=== PATIENT | female | born 1955 | race Two or more races ===

== ENCOUNTER 2016-05-13 14:54 | Emergency (ER) | payer MEDICARE, BC ==
[2016-05-13 15:03] VITALS: BP 146/91
--- OUTSIDE RECORDS SUMMARY | 2016-05-13 15:48 | XMS REPORT | Continuity of Care Document ---
:1955 Author Organization [facility] ([facility]) Address [address] [place] [address] Phone [phone] Care Team Providers Name Role Phone Vikram Green Primary Care Provider [phone] Source Comments This disclosure is being made pursuant to the Care Everywhere program, applicable federal and state laws, and may not contain all informaitonavailable regarding this patient.[facility] ([facility]) Active Allergies and Adverse Reactions Allergen Noted Date Severity Reactions Comments Sulfadoxine Urticaria (Hives) Current Medications Prescription Sig. Disp. Refills Start Date End Date Status BUTALBITAL/ASPIRIN/CAFFEINE Take 1 Tab by Active (FIORINAL PO) mouth as needed. gabapentin (NEURONTIN) 600 Take 900 mg by Active mg tablet mouth 3 times daily. fexofenadine (JOYCE) 180 Take 180 mg by Active mg tablet mouth as needed. amitriptyline (ELAVIL) 50 mg Take 50 mg by Active tablet mouth at bedtime. hydrochlorothiazide Take 25 mg by Active (HYDRODIURIL) 25 mg tablet mouth daily. acyclovir (ZOVIRAX) 400 mg Take 400 mg by Active tablet mouth 2 times daily. lansoprazole (PREVACID) 30 Take 30 mg by Active mg capsule mouth daily. topiramate (TOPAMAX) 50 mg Take 50 mg by Active tablet mouth daily. topiramate (TOPAMAX) 100 mg Take 100 mg by Active tablet mouth at bedtime. zolpiDEM (AMBIEN) 10 mg Take 10 mg by Active tablet mouth at bedtime as needed. simvastatin (ZOCOR) 20 mg Take 20 mg by Active tablet mouth every evening. citalopram (CELEXA) 20 mg Take 20 mg by Active tablet mouth daily. tiZANidine (ZANAFLEX) 2 mg Take 1 Tab by 90 Tab 3 09/24/2009 Active tablet mouth. Take 1 tab at night for one week. Then take twice a day for one week. Then take three times a day. Indications: Muscle Spasm nabumetone (RELAFEN) 500 mg Take 500 mg by Active tablet mouth 2 times daily. Active Problems Problem Noted Date Arthrodesis status 05/29/2004 Cervicalgia 01/14/2000 Cervical spondylosis without myelopathy 05/16/1999 Social History Tobacco Use Types Packs/Day Years Used Date Never Assessed Last Filed Vital Signs Vital Sign Reading Time Taken Blood Pressure 133/82 12/17/2009 11:23 AM CDT Pulse 93 12/17/2009 11:23 AM CDT Temperature 36.9 C (98.4 F) 12/17/2009 11:23 AM CDT Respiratory Rate - - Height 1.702 m (5' 7") 12/17/2009 11:23 AM CDT Weight 114.624 kg (252 lb 11.2 oz) 12/17/2009 11:23 AM CDT Body Mass Index 39.57 12/17/2009 11:23 AM CDT Oxygen Saturation 96% 12/17/2009 11:23 AM CDT Plan of Care Health Maintenance Due Date Last Done Comments HCV Screening 1955 Hepatitis B Vaccine (1 of 3 - Primary Series) 1955 Tdap Vaccine 09/15/1966 Lipid Disorder Screening 09/15/1973 MMR Vaccine 09/15/1973 Td Vaccine 09/15/1973 Cervical Cancer Screening 09/15/1985 Mammogram 1995 Colonoscopy 09/15/2005 Zoster Vaccine 2015 Influenza Vaccine: Seasonal (#1) 10/29/2015 Results from Last 3 Months Not on file
[2016-05-13 16:07] LABS: Urine Bilirubin Negative (NEGATIVE); Urine Blood Negative /ul (NEGATIVE); Urine Ketone Negative (NEGATIVE); Urine Nitrite Negative (NEGATIVE); Urine Protein Negative (NEGATIVE); Urine Urobilinogen Normal (NORMAL)
--- NOTE | 2016-05-13 16:10 | ERNOTE ---
Abdominal HPI - Narrative Date of Service: 05/13/16 - General Chief Complaint: Back Pain Time Seen by Provider: 05/13/16 15:09 Source: patient, RN notes reviewed Exam Limitations: no limitations - Immun/Allergies/Home Medications Immunizatons: IMMUNIZATION HX Immunizations Up to Date Yes History of Influenza Vaccine Yes Allergies/Adverse Reactions: Allergies Sulfa (Sulfonamide Antibiotics) Allergy (Verified 05/13/16 15:03) tramadol HCl [From Ultram] Allergy (Verified 05/13/16 15:03) Home Medications: HOME MEDICATIONS Amitriptyline HCl 100 mg PO HS 05/13/16 [Last Taken Unknown] Ciprofloxacin HCl [Cipro] 500 mg PO BID 05/13/16 [Last Taken Unknown] Cyclobenzaprine HCl [Flexeril] 10 mg PO HS 05/13/16 [Last Taken Unknown] Gabapentin 300 mg PO TID 05/13/16 [Last Taken Unknown] Hydrochlorothiazide [Hydrodiuril] 25 mg PO DAILY 05/13/16 [Last Taken Unknown] Nabumetone 750 mg PO BID 05/13/16 [Last Taken Unknown] Simvastatin 20 mg PO DAILY 05/13/16 [Last Taken Unknown] Topiramate [Topamax] 150 mg PO DAILY 05/13/16 [Last Taken Unknown] Venlafaxine HCl [Effexor Xr] 150 mg PO BID 05/13/16 [Last Taken Unknown] Zolpidem Tartrate [Ambien] 10 mg PO HS PRN 05/13/16 [Last Taken Unknown] - History of Present Illness Narrative: Lisbet is a 60 year old female who presents to the ED for pain in her left flank region that began earlier today. She has chronic low back pain and is scheduled to have surgery for this next month. She was getting her hair done and her office chair assembler said that the pain may be related to her spleen, so she became concerned and decided it should be evaluated. She denies any other associated symptoms. She is currently on Cipro for sinusitis. Timing: constant Quality: moderate, aching Activities at Onset: none Associated Symptoms: Present: denies symptoms Prior Abdominal Problems: Present: none Review of Systems - Review of Systems Constitutional: Present: recent illness. Absent: fever, chills, malaise EYE: Present: no symptoms reported ENT: Present: no symptoms reported Respiratory: Absent: shortness of breath, cough Cardiology: Absent: chest pain, edema Gastrointestinal/Abdominal: Present: constipation, abdominal pain. Absent: nausea, vomiting, diarrhea, eating less, drinking less Genitourinary: Absent: frequency, dysuria, hematuria Musculoskeletal: Present: back pain. Absent: neck pain Skin: Absent: rash, lesions, lumps Neurological: Absent: headache, dizziness/light-headedness Endocrine: Present: no symptoms reported Hematologic/Lymphatic: Present: no symptoms reported Psych: Present: no symptoms reported - Patient's Past Medical History Patient History - Medical: Chronic Pain, Fibromyalgia, Obesity Patient History - Cardiac/Respiratory: Hypertension, Hyperlipidemia Patient History - Cancer: No Hx of Cancer Patient History - Surgical Procedures: Appendectomy, Cholecystectomy, , Hysterectomy LMP (females 10-50): Menopausal - Social History Living Situations: home Smoking Status: Never smoker - Immunizations Immunizations Up to Date: Yes History of Influenza Vaccine: Yes Physical Exam - Physical Exam General Appearance: Present: wd/wn, alert, no apparent distress Neck: Present: normal inspection, nontender, supple Respiratory: Present: no respiratory distress, normal breath sounds, no accessory muscle use, lungs clear Cardiovascular/Chest: Present: regular rate, rhythm, no murmur Gastrointestinal/Abdominal: Present: normal bowel sounds, soft, no organomegaly , tenderness - left lateral abdomen, distended. Absent: rebound, mass, hernia Back Exam: Present: CVA tenderness (L). Absent: CVA tenderness (R) Neurological Exam: Present: alert, oriented, normal mood/affect Skin Exam: Present: normal color, warm/dry ED Progress - Results and Orders Patient's Lab Results:: I have reviewed the patient's lab results. - Vital Signs Patient's Vital Signs:: I have reviewed the patient's vital signs. Vital Signs: Vital Signs 05/13/16 14:59 Temperature 36.4 C L Pulse Rate 97 Respiratory 14 Rate Blood Pressure 146/91 O2 Sat by Pulse 96 Oximetry - X-Ray X-Ray #1 X-Ray: abdomen Interpretation: Interp. by me X-ray Comments: Nonobstructive bowel gas pattern with stool retention noted on left - Progress/Reassessment Chief Complaint: Back Pain Progress:: Unchanged Departure - Departure Clinical Impression: Constipation Qualifiers: Constipation type: unspecified constipation type Qualified Code(s): K59.00 - Constipation, unspecified Disposition: Home self-care Condition: Good Instructions: Constipation, Adult, [id number] Additional Instructions: Take a dose of Milk of Magnesia tonight, repeat if no results by tomorrow evening Referrals: Clayton Infante DO [Primary Care Provider] -
[2016-05-13 16:22] LABS: Urine Appearance Clear; Urine Bacteria None Seen; Urine Color Yellow; Urine RBC None Seen /hpf (0-5); Urine WBC None Seen /hpf (0-5)
[2016-05-13 16:42] LABS: Hematocrit 41.7 % (37.0-47.0); Hemoglobin 14.2 gm/dL (12.5-16.0); Mean Cell Volume 83.6 fl (78-100); Mean Corpuscular Hemoglobin 28.5 pg (27-31); Mean Corpuscular Hgb Conc 34.1 g/dl (32-36); Mean Platelet Volume 9.1 fl (6.0-9.5); Neutrophil # 3.3 K/mm3 (1.3-6.0); Neutrophil % 43.5 % (42-75.0); Platelet Count 341 K/mm3 (150-450); Red Blood Count 4.99 M/mm3 (4.2-5.4); Red Cell Distribution Width 12.8 % (11.5-14.0); White Blood Count 7.6 K/mm3 (4.0-10.5)
[2016-05-13 16:56] LABS: Albumin * 3.9 gm/dl (3.4-5.0); Anion Gap 9.9 mmol/L (6.8-13.8); BUN/Creatinine Ratio 14.3 (9.0-21.6); Bilirubin, Total 0.3 mg/dL (0.0-1.1); Ca. Corrected For Albumin 8.9 mg/dL (8.4-10.2); Calcium * 9.1 mg/dL (7.9-10.9); Carbon Dioxide 32.3 mmol/L (24-32.6); Potassium 3.2 mmol/L (3.4-4.6); Total Protein 7.2 gm/dL (6.2-8.2)
== END 2016-05-13 17:12 | disposition home or self-care (01) ==
LOC: ER 14:54
DX: K59.00 Constipation, unspecified (principal); G89.29 Other chronic pain; M79.7 Fibromyalgia; E78.5 Hyperlipidemia, unspecified; I10 Essential (primary) hypertension